=== PATIENT | male | born 1990 | race Caucasian/White ===

== ENCOUNTER 2023-01-29 08:52 | Day surgery (SDC) | payer OTHER ==
[2023-01-27 12:38] VITALS: BMI 31.3
[2023-01-29] MEDS ORDERED: Midazolam HCl 2 mg/2 ml Vial ONE (10:12)
[2023-01-29] MEDS ORDERED: PROPOFOL 60 ML ONE (10:34)
== END 2023-01-29 11:30 | disposition home or self-care (01) ==
LOC: CSHSDC 08:52
PROVIDERS: ATTEND Internal Medicine Gastroenterology
PROC: 0DB68ZX Excision of Stomach, Via Natural or Artificial Opening Endoscopic, Diagnostic (ICD-10-PCS; principal; 2023-01-29)
DX: K29.50 Unspecified chronic gastritis without bleeding (principal); K21.00 Gastro-esophageal reflux disease with esophagitis, without bleeding; E66.9 Obesity, unspecified; G47.00 Insomnia, unspecified; Z87.891 Personal history of nicotine dependence; K22.89 Other specified disease of esophagus; Z88.6 Allergy status to analgesic agent
CPT/HCPCS: 88305; J2250; J2704